=== PATIENT | male | born 1965 | race Caucasian/White ===

== ENCOUNTER 2023-08-15 06:41 | Day surgery (SDC) | payer OTHER ==
[~2023-08-15] VITALS: Ht 165.1 cm; Wt 75.9 kg
[2023-08-15] MEDS ORDERED: SODIUM CHLORIDE 0.9% 1,000 ML ONE (06:44)
[2023-08-15] MEDS ORDERED: MONT-40 PO (07:29)
[2023-08-15] MEDS ORDERED: UMEC1DIS IH (07:29)
[2023-08-15] MEDS ORDERED: ALBU18HF12 IH (07:29)
[2023-08-15] MEDS ORDERED: FentaNYL CITRATE PF 100 MCG/2 ML VIAL ONE (07:41)
[2023-08-15] MEDS ORDERED: MIDAZOLAM HCL 2 MG/2 ML VIAL ONE (07:42)
[2023-08-15] MEDS: SODIUM CHLORIDE 0.9% 1,000 ML IV ONE (08:07)
[2023-08-15 09:25] VITALS: PULSE 82; RESP 14; O2SAT 100
[2023-08-15] MEDS ORDERED: MethylPREDNISolone SOD SUCC 125 MG/2 ML VIAL ONE (09:44)
[2023-08-15] MEDS: MethylPREDNISolone SOD SUCC 125 MG/2 ML VIAL IVP ONE (09:54)
[2023-08-15] MEDS ORDERED: BENZOCAINE 20% 50 MCG/SPRAY 57 GM ONE (12:00)
[2023-08-15] MEDS ORDERED: ALBUTEROL SULFATE 2.5 MG/0.5 ML NEB SOLUTION NEB ONE (12:00)
[2023-08-15] MEDS ORDERED: LIDOCAINE 2% 11 ML JELLY ONE (12:00)
[2023-08-15] MEDS ORDERED: LIDOCAINE 4% 50 ML SOLUTION ONE (12:00)
== END 2023-08-15 12:20 | disposition home or self-care (01) ==
LOC: SURGERY 06:41
PROVIDERS: ATTEND Internal Medicine Critical Care Medicine
DX: R05.3 Chronic cough (principal); R06.2 Wheezing; R49.0 Dysphonia; R04.2 Hemoptysis; J98.19 Other pulmonary collapse; J38.4 Edema of larynx; B37.0 Candidal stomatitis
CPT/HCPCS: 87206; 87101; 87220; 87070; 88108; 88305; 94667; 31623; 31624; 94640; 71045; 71250; 87015; J3010; J2250; J2930; Q9967; J7030; J7613; Z7610

== ENCOUNTER 2023-08-15 12:30 | Emergency (ER) | payer OTHER ==
[~2023-08-15] VITALS: Ht 175.3 cm; Wt 75.0 kg
[~2023-08-15 12:30] MED LIST: ALBU18HF12 IH; MONT-40 PO; UMEC1DIS IH
[2023-08-15 12:43] VITALS: BP 151/96; PULSE 94; RESP 18; TEMP 98.2
== END 2023-08-15 13:07 | disposition left against medical advice (07) ==
LOC: EMS 12:30
DX: R05.9 Cough, unspecified (principal); Z53.21 Procedure and treatment not carried out due to patient leaving prior to being seen by health care provider
CPT/HCPCS: 99281; Z7502